=== PATIENT | female | born 1990 | race African-American/Black ===

== ENCOUNTER 2024-12-22 08:59 | Emergency (ER) | payer OTHER ==
[2024-12-22 09:26] VITALS: TEMP 97.6
--- NOTE | 2024-12-22 10:48 | ED ---
Extremity Problem HPI - General Chief complaint: Extremity Problem,Nontraumatic Stated complaint: generalized swelling Time Seen by Provider: 12/22/24 09:13 Source: patient, RN notes reviewed Mode of arrival: ambulatory Limitations: no limitations - History of Present Illness Initial comments: This is a 34-year-old female coming from [place] for LLE swelling and abdominal distention x 3 days. Patient endorses having a hard bowel movement yesterday and otherwise denies pain. Endorses some difficulty breathing attributed to distention. Patient notes some pain in left leg when walking. Otherwise denies color change, paresthesia. Denies recent plane travel, smoking, OCP use recent trauma or recent surgery. Denies fever, chills, chest pain, dyspnea/SOB, pleuritic pain, N/V/D. MD Complaint: extremity swelling Onset/Timin -: days(s) Location: left, lower extremity History of Same: No Worsens with: weight bearing, walking - Related Data Previous Rx's Medication Instructions Recorded Docusate [Colace] 100 mg PO DAILY #20 capsule 12/22/24 Allergies Allergy/AdvReac Type Severity Reaction Status Date / Time No Known Allergies Allergy Verified 12/22/24 09:26 Review of Systems ROS Statement: Those systems with pertinent positive or pertinent negative responses have been documented in the HPI. ROS Other: All systems not noted in ROS Statement are negative. Past Medical History Past Medical History: No Reported History Past Surgical History: Cholecystectomy Past Psychological History: No Psychological Hx Reported Smoking Status: Never smoker Past Alcohol Use History: None Reported Past Drug Use History: Prescription Drug Abuse General Exam Limitations: no limitations General appearance: alert, in no apparent distress Head exam: Present: atraumatic, normocephalic, normal inspection Eye exam: Present: normal appearance, PERRL, EOMI. Absent: scleral icterus, conjunctival injection, periorbital swelling ENT exam: Present: normal exam, mucous membranes moist Neck exam: Present: normal inspection. Absent: tenderness, meningismus, lymphadenopathy Respiratory exam: Present: normal lung sounds bilaterally. Absent: respiratory distress, wheezes, rales, rhonchi, stridor Cardiovascular Exam: Present: regular rate, normal rhythm, normal heart sounds. Absent: systolic murmur, diastolic murmur, rubs, gallop, clicks GI/Abdominal exam: Present: soft, distended, diminished bowel sounds, hypoactive bowel sounds. Absent: tenderness, guarding, rebound, rigid Extremities exam: Present: normal inspection, full ROM, normal capillary refill, pedal edema (Positive LLE +2 edema extending to knee. Distal neurovascular intact. Dorsalis pedis pulse +2. Negative erythema,, warmth, tenderness, stasis dermatitis, pallor). Absent: tenderness, joint swelling, calf tenderness (Negative LLE Homans' sign) Back exam: Present: normal inspection Neurological exam: Present: alert, oriented X3, CN II-XII intact Psychiatric exam: Present: normal affect, normal mood Skin exam: Present: warm, dry, intact, normal color. Absent: rash Course Vital Signs 12/22/24 12/22/24 09:24 15:16 Temperature 97.6 F Pulse Rate 76 67 Respiratory 20 18 Rate Blood Pressure 109/68 103/65 O2 Sat by Pulse 99 97 Oximetry Medical Decision Making - Medical Decision Making Was pt. sent in by a medical professional or institution (, PA, TEACHER PUBLIC HEALTH, urgent care, hospital, or half-way...) When possible be specific @ -[facility] Did you speak to anyone other than the patient for history (EMS, parent, family, police, friend...)? What history was obtained from this source @ -No Did you review nursing and triage notes (agree or disagree)? Why? @ -I reviewed and agree with nursing and triage notes Were old charts reviewed (outside hosp., previous admission, EMS record, old EKG, old radiological studies, urgent care reports/EKG's, half-way records)? Report findings @ -No old charts were reviewed Differential Diagnosis (chest pain, altered mental status, abdominal pain women, abdominal pain men, vaginal bleeding, weakness, fever, dyspnea, syncope, headache, dizziness, GI bleed, back pain, seizure, CVA, palpatations, mental health, musculoskeletal)? @ -Differential Abdominal Pain Women: Appendicitis, Cholecystitis, diverticulosis, ischemic bowel, pancreatitis, hepatitis, UTI, gastroenteritis, AAA, incarcerated hernia, bowel obstruction, constipation, inflammatory bowel, hepatitis, peptic ulcer disease, splenic infarction, perforated viscus, vulvitis, ovarian torsion, PID, kidney stone, placenta abruption, DVT, this is not meant to be an all-inclusive list EKG interpreted by me (3pts min.). @ -Not done X-rays interpreted by me (1pt min.). @ - KUB x-ray shows large amount of stool with nonspecific bowel gas pattern and no acute process. CT interpreted by me (1pt min.). @ -None done U/S interpreted by me (1pt. min.). @ -LLE venous Doppler ultrasound negative for DVT. What testing was considered but not performed or refused? (CT, X-rays, U/S, labs)? Why? @ -None What meds were considered but not given or refused? Why? @ -None Did you discuss the management of the patient with other professionals (professionals i.e. Dr., PA, TE[employer], lab, RT, psych nurse, social work faculty member, dairy farm operator, teacher, inspectors and regulatory officers, counseling case manager)? Give summary @ -No Was smoking cessation discussed for >3mins.? @ -No Was critical care preformed (if so, how long)? @ -No Were there social determinants of health that impacted care today? How? (Homelessness, low income, unemployed, alcoholism, drug addiction, transportation, low edu. Level, literacy, decrease access to med. care, correction, rehab)? @ -No Was there de-escalation of care discussed even if they declined (Discuss DNR or withdrawal of care, Hospice)? DNR status @ -No What co-morbidities impacted this encounter? (DM, HTN, Smoking, COPD, CAD, Cancer, CVA, ARF, Chemo, Hep., AIDS, mental health diagnosis, sleep apnea, morbid obesity)? @ -None Was patient admitted / discharged? Hospital course, mention meds given and route, prescriptions, significant lab abnormalities, going to OR and other pertinent info. @ -UA unremarkable with negative urine hCG. LLE venous Doppler ultrasound nega tive for DVT. KUB x-ray shows large amount of stool with nonspecific bowel gas pattern and no acute process. Patient provided p.o. magnesium citrate for constipation. Colace sent to patient's pharmacy. Advised prune juice and MiraLAX once daily for no longer than 7 days for constipation. Advised follow- up with PCP/gastroenterology for any ongoing symptoms. Discussed patient with Dr. Joe. Undiagnosed new problem with uncertain prognosis? @ -No Drug Therapy requiring intensive monitoring for toxicity (Heparin, Nitro, Insulin, Cardizem)? @ -No Were any procedures done? @ -No Diagnosis/symptom? @ -Constipation, LLE edema Acute, or Chronic, or Acute on Chronic? @ -Acute Uncomplicated (without systemic symptoms) or Complicated (systemic symptoms)? @ -Uncomplicated Side effects of treatment? @ -No Exacerbation, Progression, or Severe Exacerbation? @ -No Poses a threat to life or bodily function? How? (Chest pain, [place], [place], pneumonia, PE, COPD, DKA, ARF, appy, cholecystitis, CVA, Diverticulitis, Homicidal, Suicidal, threat to staff... and all critical care pts) @ -No - Lab Data Lab Results 12/22/24 12/22/24 Range/Units 10:54 10:54 Urine Color Colorless Urine Appearance Clear (Clear) Urine pH 8.0 (5.0-8.0) Ur Specific [place] 1.013 (1.001-1.035) Urine Protein Negative (Negative) Urine Glucose (UA) Negative (Negative) Urine Ketones Negative (Negative) Urine Blood Negative (Negative) Urine Nitrite Negative (Negative) Urine Bilirubin Negative (Negative) Urine Urobilinogen <2.0 (<2.0) mg/dL Ur Leukocyte Esterase Negative (Negative) Urine HCG, Qual Not Detected (Not Detectd) Disposition Clinical Impression: Constipation, Leg edema, left Disposition: HOME SELF-CARE Condition: Good Instructions (If sedation given, give patient instructions): Constipation (ED), High Fiber Diet (ED) Additional Instructions: Increase oral hydration, fiber and prune juice intake. May take MiraLAX once daily for up to 7 days. Follow-up with PCP regarding leg swelling and structural rigger for constipation. Prescriptions: Docusate [Colace] 100 mg PO DAILY #20 capsule Is patient prescribed a controlled substance at d/c from ED?: No Referrals: None,Stated [REFERRING] - 1-2 days Marilin Bhatia MD [STAFF PHYSICIAN] - 1-2 days Jj Melton MD [Medical Doctor] - 1-2 days Time of Disposition: 14:57
[2024-12-22] MEDS: MAGNESIUM CITRATE 296 ML BOTTLE PO ONE (10:58)
[2024-12-22 11:16] LABS: Appearance,Urine Clear (Clear); Bilirubin,Urine Negative (Negative); Blood,Urine Negative (Negative); Color,Urine Colorless; Glucose,Urine (UA) Negative (Negative); Ketones,Urine Negative (Negative); Leukocyte Esterase,Urine Negative (Negative); Nitrite,Urine Negative (Negative); Protein,Urine Negative (Negative); Specific Gravity,Urine 1.013 (1.001-1.035); Urobilinogen,Urine <2.0 mg/dL (<2.0)
--- NOTE | 2024-12-22 13:27 | US ---
EXAMINATION TYPE: US venous doppler duplex LE LT DATE OF EXAM: 12/22/2024 1:22 PM COMPARISON: NONE CLINICAL INDICATION: Female, 34 years old with history of s/o LLE edema; , Pain TECHNIQUE: The lower extremity deep venous system is examined utilizing real time linear array sonog chiquis with graded compression, color doppler sonography, and spectral doppler. SIDE PERFORMED: Left FINDINGS: VESSELS IMAGED: Common Femoral Vein Deep Femoral Vein Greater Saphenous Vein * Femoral Vein Popliteal Vein Small Saphenous Vein * Proximal Calf Veins (* superficial vessels) Left Leg: Negative for DVT, Color Doppler imaging shows patency of the vessels. Spectral waveforms a re within normal limits. IMPRESSION: No ultrasound evidence for deep venous thrombosis. [facility], , 12/22/2024 1:25 PM
--- NOTE | 2024-12-22 14:26 | XR ---
EXAMINATION TYPE: XR KUB DATE OF EXAM: 12/22/2024 2:10 PM COMPARISON: None CLINICAL INDICATION: Female, 34 years old with history of Distention, hard stool; [facility] TECHNIQUE: One radiographic view of the abdomen was obtained. FINDINGS: There is a large stool burden, otherwise, the bowel gas pattern is nonspecific without dila josé miguel loops of small or large bowel. . Fecal material and gas are demonstrated throughout the colon and rectum. There is no evidence for organomegaly or pneumoperitoneum. No acute osseous process. No ab normal calcifications are present. IMPRESSION: Large amount stool: Nonspecific bowel gas pattern without radiographic evidence for acute process. [facility], , 12/22/2024 2:24 PM
[2024-12-22 15:17] VITALS: BP 103/65; PULSE 67; RESP 18
== END 2024-12-22 15:16 | disposition home or self-care (01) ==
LOC: EC 08:59
DX: K59.00 Constipation, unspecified (principal); R22.42 Localized swelling, mass and lump, left lower limb
CPT/HCPCS: 74018; 81003; 81025; 99284

== ENCOUNTER 2024-12-29 23:44 | Emergency (ER) | payer OTHER ==
--- NOTE | 2024-12-30 01:04 | ED ---
Seizure HPI - General Source: patient, EMS, RN notes reviewed Mode of arrival: EMS Limitations: no limitations - History of Present Illness MD Complaint: possible seizure Onset/Timin -: hour(s) Trauma: No Seizure History: none Place: other Possible Precipitating Event: none Associated Symptoms: shortness of breath, other (Twitching) Treatments Prior to Arrival: none <Arsalan Francois - Last Filed: 12/30/24 04:03> <Michael Madsen - Last Filed: 01/01/25 02:45> - General Chief Complaint: Seizure Stated Complaint: Tremors Time Seen by Provider: 12/29/24 23:58 - History of Present Illness Initial Comments: This is a 34-year-old female with history of opioid dependency presenting from [place] via EMS for seizure-like activity occurring today. Patient states she experienced sudden twitching/convulsion activity without provocation. States she is unsure of loss of consciousness, denying confusion following event, noting that there is still ongoing twitching in her extremities and face as well as nausea. Endorses regular use of Seroquel and Remeron. Denies fever, chills, urinary incontinence, tongue biting, chest pain, dyspnea, headache, abdominal pain. (Arsalan Francois) - Related Data Previous Rx's Medication Instructions Recorded Docusate [Colace] 100 mg PO DAILY #20 capsule 12/22/24 Allergies Allergy/AdvReac Type Severity Reaction Status Date / Time No Known Allergies Allergy Verified 12/29/24 23:51 Review of Systems ROS Other: All systems not noted in ROS Statement are negative. <Arsalan Francois - Last Filed: 12/30/24 04:03> ROS Other: All systems not noted in ROS Statement are negative. <Michael Madsen - Last Filed: 01/01/25 02:45> ROS Statement: Those systems with pertinent positive or pertinent negative responses have been documented in the HPI. Past Medical History Past Medical History: No Reported History Past Surgical History: Cholecystectomy Past Psychological History: No Psychological Hx Reported Smoking Status: Never smoker Past Alcohol Use History: None Reported Past Drug Use History: Prescription Drug Abuse <Arsalan Francois - Last Filed: 12/30/24 04:03> General Exam General appearance: alert (Alert to verbal), other (Frequent twitching noted from patient and body and face) Head exam: Present: atraumatic, normocephalic, normal inspection Eye exam: Present: normal appearance, PERRL, EOMI. Absent: scleral icterus, conjunctival injection, periorbital swelling ENT exam: Present: normal exam, mucous membranes moist Neck exam: Present: normal inspection. Absent: tenderness, meningismus, lymphadenopathy Respiratory exam: Present: wheezes, decreased breath sounds, prolonged expiratory. Absent: respiratory distress, rales, rhonchi, stridor, accessory muscle use Cardiovascular Exam: Present: regular rate, normal rhythm, normal heart sounds. Absent: systolic murmur, diastolic murmur, rubs, gallop, clicks GI/Abdominal exam: Present: soft, normal bowel sounds. Absent: distended, tenderness, guarding, rebound, rigid Extremities exam: Present: normal inspection, full ROM, normal capillary refill. Absent: tenderness, pedal edema, joint swelling, calf tenderness Back exam: Present: normal inspection Neurological exam: Present: alert, oriented X3, CN II-XII intact Psychiatric exam: Present: normal affect, normal mood Skin exam: Present: warm, dry, intact, normal color. Absent: rash <Arsalan Francois - Last Filed: 12/30/24 04:03> Course Vital Signs 12/29/24 12/30/24 12/30/24 23:46 01:28 01:37 Temperature 98.0 F Pulse Rate 124 H 110 H 109 H Respiratory 18 Rate Blood Pressure 151/98 O2 Sat by Pulse 100 Oximetry 12/30/24 12/30/24 12/30/24 01:51 02:54 06:09 Temperature 97.9 F Pulse Rate 102 H 99 86 Respiratory 20 17 17 Rate Blood Pressure 103/51 107/65 111/71 O2 Sat by Pulse 98 97 100 Oximetry Medical Decision Making - Lab Data Result diagrams: 12/30/24 01:12 12/30/24 01:12 <Arsalan Francois - Last Filed: 12/30/24 04:03> - Lab Data Result diagrams: 12/30/24 01:12 12/30/24 01:12 <Michael Madsen - Last Filed: 01/01/25 02:45> - Medical Decision Making Was pt. sent in by a medical professional or institution (, PA, REMEDY DEVELOPER, urgent care, hospital, or residential...) When possible be specific @ -[No] Did you speak to anyone other than the patient for history (EMS, parent, family, police, friend...)? What history was obtained from this source @ -[No] Did you review nursing and triage notes (agree or disagree)? Why? @ -[I reviewed and agree with nursing and triage notes] Were old charts reviewed (outside hosp., previous admission, EMS record, old EKG, old radiological studies, urgent care reports/EKG's, residential records)? Report findings @ -[No old charts were reviewed] Differential Diagnosis (chest pain, altered mental status, abdominal pain women, abdominal pain men, vaginal bleeding, weakness, fever, dyspnea, syncope, headache, dizziness, GI bleed, back pain, seizure, CVA, palpatations, mental health, musculoskeletal)? @ -Differential Seizure: Recurrent seizure disorder, febrile seizure, alcohol withdrawal, stimulants, meningitis, encephalitis, intercranial hemorrhage, intracranial tumor, stroke, eclampsia, thyrotoxicosis, hypocalcemia, hyponatremia, hypernatremia, hypomagnesemia, psychogenic, this is not meant to be an all-inclusive list. EKG interpreted by me (3pts min.). @ -Sinus tachycardia without ST deviation or T wave inversion. Ventricular rate 110 bpm, OLEG 157 ms, QRS 74 ms, QTc 382 ms. X-rays interpreted by me (1pt min.). @ -[None done] CT interpreted by me (1pt min.). @ -[None done] U/S interpreted by me (1pt. min.). @ -[None done] What testing was considered but not performed or refused? (CT, X-rays, U/S, labs)? Why? @ -[None] What meds were considered but not given or refused? Why? @ -[None] Did you discuss the management of the patient with other professionals (professionals i.e. , PA, REMEDY DEVELOPER, lab, RT, psych nurse, protective services social worker, managed care specialist, teacher, chief sales officer, rn case manager hospice)? Give summary @ -[No] Was smoking cessation discussed for >3mins.? @ -[No] Was critical care preformed (if so, how long)? @ -[No] Were there social determinants of health that impacted care today? How? (Homelessness, low income, unemployed, alcoholism, drug addiction, transpo rtation, low edu. Level, literacy, decrease access to med. care, detention, rehab)? @ -[No] Was there de-escalation of care discussed even if they declined (Discuss DNR or withdrawal of care, Hospice)? DNR status @ -[No] What co-morbidities impacted this encounter? (DM, HTN, Smoking, COPD, CAD, Cancer, CVA, ARF, Chemo, Hep., AIDS, mental health diagnosis, sleep apnea, morbid obesity)? @ -[None] Was patient admitted / discharged? Hospital course, mention meds given and route, prescriptions, significant lab abnormalities, going to OR and other pertinent info. @ -[hospital course] Undiagnosed new problem with uncertain prognosis? @ -[No] Drug Therapy requiring intensive monitoring for toxicity (Heparin, Nitro, Insulin, Cardizem)? @ -[No] Were any procedures done? @ -[No] Diagnosis/symptom? @ -[default] Acute, or Chronic, or Acute on Chronic? @ -Acute Uncomplicated (without systemic symptoms) or Complicated (systemic symptoms)? @ -Complicated Side effects of treatment? @ -[No] Exacerbation, Progression, or Severe Exacerbation? @ -[No] Poses a threat to life or bodily function? How? (Chest pain, [place], [place], pneumonia, PE, COPD, DKA, ARF, appy, cholecystitis, CVA, Diverticulitis, Homicidal, Brianna cidal, threat to staff... and all critical care pts) @ -[No] (Arsalan Francois) SUPERVISORY NOTE: I personally interviewed the patient, reviewed documentation and results, pe rformed physical exam and MDM in its entirety, constituting majority of visit (Michael Madsen) - Lab Data Lab Results 12/30/24 12/30/24 12/30/24 Range/Units 00:31 00:31 01:12 WBC 11.2 H (3.8-10.6) k/uL RBC 3.87 (3.80-5.40) m/uL Hgb 11.1 L (11.4-16.0) gm/dL Hct 34.0 (34.0-46.0) % MCV 87.8 (80.0-100.0) fL MCH 28.6 (25.0-35.0) pg MCHC 32.6 (31.0-37.0) g/dL RDW 13.8 (11.5-15.5) % Plt Count 307 (150-450) k/uL MPV 7.3 Neutrophils % 69 % Lymphocytes % 24 % Monocytes % 4 % Eosinophils % 1 % Basophils % 0 % Neutrophils # 7.7 (1.3-7.7) k/uL Lymphocytes # 2.7 (1.0-4.8) k/uL Monocytes # 0.5 (0-1.0) k/uL Eosinophils # 0.1 (0-0.7) k/uL Basophils # 0.0 (0-0.2) k/uL Sodium (137-145) mmol/L Potassium (3.5-5.1) mmol/L Chloride (98-107) mmol/L Carbon Dioxide (22-30) mmol/L Anion Gap mmol/L BUN (7-17) mg/dL Creatinine (0.52-1.04) mg/dL Est GFR (CKD-EPI)AfAm (>60 ml/min/1.73 sqM) Est GFR (CKD-EPI)NonAf (>60 ml/min/1.73 sqM) Glucose (74-99) mg/dL Calcium (8.4-10.2) mg/dL Magnesium (1.6-2.3) mg/dL Total Bilirubin (0.2-1.3) mg/dL AST (14-36) U/L ALT (4-34) U/L Alkaline Phosphatase (38-126) U/L Total Protein (6.3-8.2) g/dL Albumin (3.5-5.0) g/dL Urine Color Colorless Urine Appearance Clear (Clear) Urine pH 5.0 (5.0-8.0) Ur Specific [place] 1.007 (1.001-1.035) Urine Protein Negative (Negative) Urine Glucose (UA) Negative (Negative) Urine Ketones Negative (Negative) Urine Blood Small H (Negative) Urine Nitrite Negative (Negative) Urine Bilirubin Negative (Negative) Urine Urobilinogen <2.0 (<2.0) mg/dL Ur Leukocyte Esterase Negative (Negative) Urine RBC 1 (0-5) /hpf Urine WBC 1 (0-5) /hpf Ur Squamous Epith Cells 2 (0-4) /hpf Urine HCG, Qual Not Detected (Not Detectd) Urine Opiates Screen Not Detected (NotDetected) Ur Oxycodone Screen Not Detected (NotDetected) Urine Methadone Screen Not Detected (NotDetected) Ur Barbiturates Screen Not Detected (NotDetected) U Tricyclic Antidepress Detected H (NotDetected) Ur Phencyclidine Scrn Not Detected (NotDetected) Ur Amphetamines Screen Not Detected (NotDetected) U Methamphetamines Scrn Not Detected (NotDetected) U Benzodiazepines Scrn Not Detected (NotDetected) Urine Cocaine Screen Not Detected (NotDetected) U Marijuana (THC) Screen Not Detected (NotDetected) Serum Alcohol mg/dL 12/30/24 Range/Units 01:12 WBC (3.8-10.6) k/uL RBC (3.80-5.40) m/uL Hgb (11.4-16.0) gm/dL Hct (34.0-46.0) % MCV (80.0-100.0) fL MCH (25.0-35.0) pg MCHC (31.0-37.0) g/dL RDW (11.5-15.5) % Plt Count (150-450) k/uL MPV Neutrophils % % Lymphocytes % % Monocytes % % Eosinophils % % Basophils % % Neutrophils # (1.3-7.7) k/uL Lymphocytes # (1.0-4.8) k/uL Monocytes # (0-1.0) k/uL Eosinophils # (0-0.7) k/uL Basophils # (0-0.2) k/uL Sodium 136 L (137-145) mmol/L Potassium 4.2 (3.5-5.1) mmol/L Chloride 99 (98-107) mmol/L Carbon Dioxide 27 (22-30) mmol/L Anion Gap 10 mmol/L BUN 13 (7-17) mg/dL Creatinine 0.62 (0.52-1.04) mg/dL Est GFR (CKD-EPI)AfAm >90 (>60 ml/min/1.73 sqM) Est GFR (CKD-EPI)NonAf >90 (>60 ml/min/1.73 sqM) Glucose 88 (74-99) mg/dL Calcium 9.7 (8.4-10.2) mg/dL Magnesium 1.7 (1.6-2.3) mg/dL Total Bilirubin 0.5 (0.2-1.3) mg/dL AST 31 (14-36) U/L ALT 23 (4-34) U/L Alkaline Phosphatase 55 (38-126) U/L Total Protein 7.8 (6.3-8.2) g/dL Albumin 4.2 (3.5-5.0) g/dL Urine Color Urine Appearance (Clear) Urine pH (5.0-8.0) Ur Specific [place] (1.001-1.035) Urine Protein (Negative) Urine Glucose (UA) (Negative) Urine Ketones (Negative) Urine Blood (Negative) Urine Nitrite (Negative) Urine Bilirubin (Negative) Urine Urobilinogen (<2.0) mg/dL Ur Leukocyte Esterase (Negative) Urine RBC (0-5) /hpf Urine WBC (0-5) /hpf Ur Squamous Epith Cells (0-4) /hpf Urine HCG, Qual (Not Detectd) Urine Opiates Screen (NotDetected) Ur Oxycodone Screen (NotDetected) Urine Methadone Screen (NotDetected) Ur Barbiturates Screen (NotDetected) U Tricyclic Antidepress (NotDetected) Ur Phencyclidine Scrn (NotDetected) Ur Amphetamines Screen (NotDetected) U Methamphetamines Scrn (NotDetected) U Benzodiazepines Scrn (NotDetected) Urine Cocaine Screen (NotDetected) U Marijuana (THC) Screen (NotDetected) Serum Alcohol <10 mg/dL Disposition <Arsalan Francois - Last Filed: 12/30/24 04:03> Is patient prescribed a controlled substance at d/c from ED?: No <Michael Madsen - Last Filed: 01/01/25 02:45> Clinical Impression: Generalized seizure Disposition: HOME SELF-CARE Condition: Good Instructions (If sedation given, give patient instructions): Seizure/Epilepsy Discharge Instructions & Follow-Up Referrals: None,Stated [Primary Care Provider] - 1-2 days Courtney Patel MD [Doctor of Osteopathic Medicine] - 1-2 days
[2024-12-30] MEDS: ONDANSETRON 4 MG/2 ML VIAL IVP STA (01:17)
[2024-12-30 01:18] LABS: Appearance,Urine Clear (Clear); Bilirubin,Urine Negative (Negative); Blood,Urine Small (Negative); Color,Urine Colorless; Glucose,Urine (UA) Negative (Negative); Ketones,Urine Negative (Negative); Leukocyte Esterase,Urine Negative (Negative); Nitrite,Urine Negative (Negative); Protein,Urine Negative (Negative); RBC,Urine 1 /hpf (0-5); Specific Gravity,Urine 1.007 (1.001-1.035); Squamous Epithelial Cell,Urine 2 /hpf (0-4); Urobilinogen,Urine <2.0 mg/dL (<2.0); WBC,Urine 1 /hpf (0-5)
[2024-12-30] MEDS: SODIUM CHLORIDE 0.9% 1,000 ML IV STA (01:18)
[2024-12-30] MEDS: diphenhydrAMINE 50 MG/ML 1 ML VIAL IVP STA (01:19)
[2024-12-30] MEDS: levETIRAcetam IV 500 MG/5 ML VIAL IVP STA (01:20)
[2024-12-30] MEDS: IPRATROPIUM-ALBUTEROL 3 ML NEB INHALATION STA (01:28)
[2024-12-30 01:40] LABS: Basophils % (A) 0 %; Eosinophils # (A) 0.1 k/uL (0-0.7); Eosinophils % (A) 1 %; HGB 11.1 gm/dL (11.4-16.0); Lymphocytes # (A) 2.7 k/uL (1.0-4.8); Lymphocytes % (A) 24 %; MCH 28.6 pg (25.0-35.0); MCHC 32.6 g/dL (31.0-37.0); MCV 87.8 fL (80.0-100.0); Mean Platelet Volume 7.3; Monocytes # (A) 0.5 k/uL (0-1.0); Monocytes % (A) 4 %; Neutrophils # (A) 7.7 k/uL (1.3-7.7); Neutrophils % (A) 69 %; Platelet Count 307 k/uL (150-450); RBC 3.87 m/uL (3.80-5.40); RDW 13.8 % (11.5-15.5); WBC 11.2 k/uL (3.8-10.6)
[2024-12-30 01:48] LABS: Amphetamine Screen,Urine Not Detected (NotDetected); Barbiturate Screen,Urine Not Detected (NotDetected); Benzodiazepines Screen,Urine Not Detected (NotDetected); Cocaine Screen,Urine Not Detected (NotDetected); Methadone Screen, Urine Not Detected (NotDetected); Opiate Screen,Urine Not Detected (NotDetected); Oxycodone Screen, Urine Not Detected (NotDetected); Phencyclidine Screen,Urine Not Detected (NotDetected); Tricyclic Antidepressant,Urine Detected (NotDetected); Urn Cannabinoid Scrn Not Detected (NotDetected)
[2024-12-30 02:10] LABS: ALT 23 U/L (4-34); AST 31 U/L (14-36); African American GFR (CKD) >90 (>60 ml/min/1.73 sqM); Albumin 4.2 g/dL (3.5-5.0); Alcohol <10 mg/dL; Alkaline Phosphatase 55 U/L (38-126); Anion Gap 10 mmol/L; Blood Urea Nitrogen 13 mg/dL (7-17); Calcium 9.7 mg/dL (8.4-10.2); Carbon Dioxide 27 mmol/L (22-30); Chloride 99 mmol/L (98-107); Glucose 88 mg/dL (74-99); Magnesium 1.7 mg/dL (1.6-2.3); Non-African American GFR(CKD) >90 (>60 ml/min/1.73 sqM); Potassium 4.2 mmol/L (3.5-5.1); Sodium 136 mmol/L (137-145); Total Bilirubin 0.5 mg/dL (0.2-1.3); Total Protein 7.8 g/dL (6.3-8.2)
[2024-12-30 02:57] VITALS: RESP 17
--- NOTE | 2024-12-30 04:23 | XR ---
EXAM: XR Chest, 2 Views CLINICAL HISTORY: Pt presents to ER via EMS. Pt is a patient at [facility], had "seizure-like activity," today while at [facility]. Pt has been at [facility] for 2 weeks for opoid addiction. Diminished lung sounds TECHNIQUE: Frontal and lateral views of the chest. COMPARISON: No relevant prior studies available. FINDINGS: Lungs: Unremarkable. No consolidation. Pleural space: Unremarkable. Mediastinum: Unremarkable. Normal mediastinal contour. Bones/joints: No acute findings. Upper abdomen: Cholecystectomy clips. IMPRESSION: No acute findings in the chest.
[2024-12-30 06:12] VITALS: BP 111/71; PULSE 86; TEMP 97.9
== END 2024-12-30 06:26 | disposition home or self-care (01) ==
LOC: EC 23:44
DX: R56.9 Unspecified convulsions (principal)
CPT/HCPCS: 36415; 94640; 93005; 80053; 83735; 85025; 81001; 81025; 80306; 71046; 99285; 96374; 96375 ×2; 96361 ×2; G0480; J1200; J2405; J1953; 80320